=== PATIENT | female | born 1990 | race Caucasian/White ===

== ENCOUNTER → 2021-11-06 14:05 | Outpatient (BNVA) | payer OTHER, SELFPAY | PROVIDERS: PCP Internal Medicine; Visit Provider Physician Assistant Medical | DX: S16.1XXA Strain of muscle, fascia and tendon at neck level, initial encounter (principal); S39.012A Strain of muscle, fascia and tendon of lower back, initial encounter; Y04.8XXA Assault by other bodily force, initial encounter | CPT/HCPCS: 71111; 99203 ==

== ENCOUNTER → 2021-11-10 12:35 | Outpatient (BNVA) | payer OTHER, SELFPAY | PROVIDERS: PCP Internal Medicine; Visit Provider Physician Assistant | DX: S16.1XXA Strain of muscle, fascia and tendon at neck level, initial encounter (principal); S39.012A Strain of muscle, fascia and tendon of lower back, initial encounter; S09.90XA Unspecified injury of head, initial encounter; S49.92XA Unspecified injury of left shoulder and upper arm, initial encounter; Y04.8XXA Assault by other bodily force, initial encounter | CPT/HCPCS: 99213 ==

== ENCOUNTER 2022-03-11 12:33 | Emergency (ER) | payer MEDICAID, SELFPAY ==
[2022-03-11 12:48] VITALS: BP 126/80; PULSE 74; RESP 16; TEMP 36.1; O2SAT 97; BMI 28.6
[2022-03-11] MEDS: Ondansetron ODT 4 MG TAB.RAPDIS TRANSLINGU (12:54)
--- NOTE | 2022-03-11 15:29 | ED.NAVMDI ---
HPI - Nausea/Vomiting/Diarrhea General Chief complaint: Nausea/Vomiting/Diarrhea <Edgar Sellers MD - Last Filed: 03/11/22 15:33> Stated complaint: hung over, sob <Edgar Sellers MD - Last Filed: 03/11/22 15:33> Time Seen by Provider: 03/11/22 15:26 <Edgar Sellers MD - Last Filed: 03/11/22 15:33> Source: patient <Edgar Sellers MD - Last Filed: 03/11/22 15:33> Mode of arrival: ambulatory <Edgar Sellers MD - Last Filed: 03/11/22 15:33> Limitations: no limitations <Edgar Sellers MD - Last Filed: 03/11/22 15:33> History of Present Illness HPI Narrative: This is 31 years old female presented to the ED with a chief complaint of nausea vomiting, she states she was drinking last night. Denies any abdominal pain fever. <Edgar Sellers MD - Last Filed: 03/11/22 15:33> MD elicited complaint: nausea and vomiting <Edgar Sellers MD - Last Filed: 03/11/22 15:33> Onset (ago): hour(s) (10) <Edgar Sellers MD - Last Filed: 03/11/22 15:33> Description of vomiting: watery <Edgar Sellers MD - Last Filed: 03/11/22 15:33> Description of diarrhea: watery <Edgar Sellers MD - Last Filed: 03/11/22 15:33> Associated abdominal pain: No <Edgar Sellers MD - Last Filed: 03/11/22 15:33> Severity: moderate <Edgar Sellers MD - Last Filed: 03/11/22 15:33> Quality: cramping <Edgar Sellers MD - Last Filed: 03/11/22 15:33> Exacerbating factors: alcohol intake <Edgar Sellers MD - Last Filed: 03/11/22 15:33> Relieving factors: none <Edgar Sellers MD - Last Filed: 03/11/22 15:33> Related Data Allergies/Adverse reactions: Allergies Allergy/AdvReac Type Severity Reaction Status Date / Time No Known Allergies Allergy Unverified 05/05/20 16:01 <Edgar Sellers MD - Last Filed: 03/11/22 15:33> Review of Systems Review of Systems: Yes all other systems are reviewed and are negative <Edgar Sellers MD - Last Filed: 03/11/22 15:33> ENT: Reports system reviewed and no additional complaints, except as documented <Edgar Sellers MD - Last Filed: 03/11/22 15:33> Respiratory: Respiratory: Reports no additional respiratory complaints <Edgar Sellers MD - Last Filed: 03/11/22 15:33> Gastrointestinal: Gastrointestinal: Reports no additional gastrointestinal complaints <Edgar Sellers MD - Last Filed: 03/11/22 15:33> Musculoskeletal: Musculoskeletal: Reports no additional musculoskeletal complaints <Edgar Sellers MD - Last Filed: 03/11/22 15:33> [facility] Social History Social History: Social History Advance Directives: No Advance Directives Information Provided: No <Edgar Sellers MD - Last Filed: 03/11/22 15:33> Physical Exam Vital Signs: Vital Signs: Last Vital Signs Temp 96.9 F 03/11/22 12:48 Pulse 64 03/11/22 16:29 Resp 16 03/11/22 12:48 BP 119/77 03/11/22 16:29 Pulse Ox 98 03/11/22 16:29 O2 Del Method 03/11/22 16:29 BMI result Body Mass Index 28.6 <Edgar Sellers MD - Last Filed: 03/11/22 15:33> Vital Signs: Last Vital Signs Temp 96.9 F 03/11/22 12:48 Pulse 64 03/11/22 16:29 Resp 16 03/11/22 12:48 BP 119/77 03/11/22 16:29 Pulse Ox 98 03/11/22 16:29 O2 Del Method 03/11/22 16:29 BMI result Body Mass Index 28.6 <Philipp May MD - Last Filed: 03/11/22 18:09> Const: General: cooperative, comfortable and no acute distress <Edgar Sellers MD - Last Filed: 03/11/22 15:33> Nutritional Appearance: average body habitus <MD Jayson Pulido Last Filed: 03/11/22 15:33> Orientation/consciousness: patient oriented x3 <Edgar Sellers MD - Last Filed: 03/11/22 15:33> Limitations: no limitations <Edgar Sellers MD - Last Filed: 03/11/22 15:33> HEENT: Head: Yes normal to inspection <Edgar Sellers MD - Last Filed: 03/11/22 15:33> General nose exam: Normal external nose present <MD Jayson Pulido Last Filed: 03/11/22 15:33> Face and sinus: Yes normal facial exam <Edgar Sellers MD - Last Filed: 03/11/22 15:33> Mouth: Normal oral and palatal mucosa present <MD Jayson Pulido Last Filed: 03/11/22 15:33> Throat: Yes posterior oropharynx normal <Edgar Sellers MD - Last Filed: 03/11/22 15:33> Neck: Neck: Yes normal visual inspection and Yes full ROM <MD Jayson Pulido Last Filed: 03/11/22 15:33> Chest: Chest palpation & inspection: normal inspection of the chest <MD Jayson Pulido Last Filed: 03/11/22 15:33> Resp: Effort & Inspection: normal respiratory effort and able to speak in complete sentences <MD Jayson Pulido Last Filed: 03/11/22 15:33> Auscultation: clear to auscultation bilaterally <MD Jayson Pulido Last Filed: 03/11/22 15:33> Cardio: Jugular venous distension: no JVD <MD Jayson Pulido Last Filed: 03/11/22 15:33> Rate: regular rate <MD Jayson Pulido Last Filed: 03/11/22 15:33> Rhythm: regular rhythm <MD Jayson Pulido Last Filed: 03/11/22 15:33> GI: Inspection: Yes normal to inspection <MD Jayson Pulido Last Filed: 03/11/22 15:33> Palpation (GI): Soft to palpation, not firm, nontender and no guarding <Edgar Sellers MD - Last Filed: 03/11/22 15:33> Auscultation: normal bowel sounds <Edgar Sellers MD - Last Filed: 03/11/22 15:33> : General: Yes no CVA tenderness <Edgar Sellers MD - Last Filed: 03/11/22 15:33> Back/Spine/Pelvis: Back: no CVA tenderness <Edgar Sellers MD - Last Filed: 03/11/22 15:33> Skin: General skin exam: no rashes or lesions noted, elasticity normal and turgor normal <Edgar Sellers MD - Last Filed: 03/11/22 15:33> Lesions: no lesions <Edgar Sellers MD - Last Filed: 03/11/22 15:33> Neuro: General: patient oriented x3 <Edgar Sellers MD - Last Filed: 03/11/22 15:33> Cranial nerves: Yes CN's II-XII intact bilaterally <Edgar Sellers MD - Last Filed: 03/11/22 15:33> Course Course Course Narrative: 31-year-old female came in for evaluation of nausea, vomiting for 1 day after drinking alcohol, patient is awake, able to tolerate clear food in the emergency department patient is drinking fluids with no nausea or vomiting, patient has no abdominal pain, repeat abdominal exam shows no tenderness, no guarding, no rebound tenderness. Labs unremarkable except for slight leukocytosis which could be reaction only after drinking alcohol. <Philipp May MD - Last Filed: 03/11/22 18:09> MDM - Nausea/Vomiting/Diarrhea Lab Data Attestation: I reviewed the patient's lab results. <Philipp May MD - Last Filed: 03/11/22 18:09> Result diagrams: : 03/11/22 16:35 03/11/22 16:35 <Edgar Sellers MD - Last Filed: 03/11/22 15:33> Labs: Lab Results 03/11/22 03/11/22 03/11/22 Range/Units 16:35 16:35 16:35 WBC 12.1 H (4.8-10.8) X10*3/uL RBC 4.50 (4.20-5.50) X10*6/uL Hgb 13.3 (12.0-16.0) g/dl Hct 40.0 (37.0-47.0) % MCV 88.9 (80.0-98.0) fL MCH 29.6 (27.0-33.0) pg MCHC 33.3 (31.0-35.0) g/dl RDW 12.2 (11.0-16.0) % Plt Count 366 (160-400) X10*3/uL MPV 10.3 (9.4-12.3) fL Immature Gran % (Auto) 0.3 (0.0-0.4) % Neut % (Auto) 74.1 H (45-73) % Lymph % (Auto) 19.6 L (20-40) % [place] % (Auto) 5.7 (2-11) % Eos % (Auto) 0.1 (0-4) % Baso % (Auto) 0.2 (0-2) % Lymph # (Auto) 2.4 (1.2-4.9) X10*3/uL [place] # (Auto) 0.7 (0.1-1.2) X10*3/uL Eos # (Auto) 0.0 (0.0-0.4) X10*3/uL Baso # (Auto) 0.0 (0.0-0.2) X10*3/uL Abs Immat Gran (auto) 0.04 H (0.00-0.03) X10*3/uL Absolute Neuts (auto) 8.9 H (2.0-8.3) x10*3/uL Absolute Nucleated RBC 0.000 (0.0-0.012) X10*3/uL Nucleated RBC % (auto) 0.0 (0.0-0.2) /100WBC Sodium 140 (135-145) mmol/L Potassium 3.9 (3.3-5.1) mmol/L Chloride 108 (96-108) mmol/L Carbon Dioxide 22 (22-29) mmol/L Anion Gap 14 (12-20) BUN 10 (9-16) mg/dL Creatinine 0.77 (0.5-1.4) mg/dL Estim Creat Clear Calc 109.2 Estimated GFR > 60 Random Glucose 85 (60-115) mg/dL Calcium 9.0 (8.4-10.2) mg/dL Total Bilirubin 0.6 (0.0-1.0) mg/dL AST 41 H (5-31) U/L ALT 31 (0-31) U/L Alkaline Phosphatase 67 (39-117) U/L Total Protein 7.8 (6.5-8.0) g/dL Albumin 4.3 (3.5-5.0) g/dL Beta HCG, Quant < 2 mIU/mL <Edgar Sellers MD - Last Filed: 03/11/22 15:33> Lab Results 03/11/22 03/11/22 03/11/22 Range/Units 16:35 16:35 16:35 WBC 12.1 H (4.8-10.8) X10*3/uL RBC 4.50 (4.20-5.50) X10*6/uL Hgb 13.3 (12.0-16.0) g/dl Hct 40.0 (37.0-47.0) % MCV 88.9 (80.0-98.0) fL MCH 29.6 (27.0-33.0) pg MCHC 33.3 (31.0-35.0) g/dl RDW 12.2 (11.0-16.0) % Plt Count 366 (160-400) X10*3/uL MPV 10.3 (9.4-12.3) fL Immature Gran % (Auto) 0.3 (0.0-0.4) % Neut % (Auto) 74.1 H (45-73) % Lymph % (Auto) 19.6 L (20-40) % [place] % (Auto) 5.7 (2-11) % Eos % (Auto) 0.1 (0-4) % Baso % (Auto) 0.2 (0-2) % Lymph # (Auto) 2.4 (1.2-4.9) X10*3/uL [place] # (Auto) 0.7 (0.1-1.2) X10*3/uL Eos # (Auto) 0.0 (0.0-0.4) X10*3/uL Baso # (Auto) 0.0 (0.0-0.2) X10*3/uL Abs Immat Gran (auto) 0.04 H (0.00-0.03) X10*3/uL Absolute Neuts (auto) 8.9 H (2.0-8.3) x10*3/uL Absolute Nucleated RBC 0.000 (0.0-0.012) X10*3/uL Nucleated RBC % (auto) 0.0 (0.0-0.2) /100WBC Sodium 140 (135-145) mmol/L Potassium 3.9 (3.3-5.1) mmol/L Chloride 108 (96-108) mmol/L Carbon Dioxide 22 (22-29) mmol/L Anion Gap 14 (12-20) BUN 10 (9-16) mg/dL Creatinine 0.77 (0.5-1.4) mg/dL Estim Creat Clear Calc 109.2 Estimated GFR > 60 Random Glucose 85 (60-115) mg/dL Calcium 9.0 (8.4-10.2) mg/dL Total Bilirubin 0.6 (0.0-1.0) mg/dL AST 41 H (5-31) U/L ALT 31 (0-31) U/L Alkaline Phosphatase 67 (39-117) U/L Total Protein 7.8 (6.5-8.0) g/dL Albumin 4.3 (3.5-5.0) g/dL Beta HCG, Quant < 2 mIU/mL <Philipp May MD - Last Filed: 03/11/22 18:09> Discharge Plan Discharge Clinical Impression: Acute alcoholic gastritis <Edgar Sellers MD - Last Filed: 03/11/22 15:33> Patient Disposition: Home, Self-Care <Edgar Sellers MD - Last Filed: 03/11/22 15:33> Instructions: Gastritis (ED) <Edgar Sellers MD - Last Filed: 03/11/22 15:33> Additional Instructions: clear liquid diet for 24 h <Edgar Sellers MD - Last Filed: 03/11/22 15:33>
[2022-03-11 16:29] VITALS: BP 119/77; PULSE 64; O2SAT 98
[2022-03-11 16:41] LABS: MANUAL DIFF FLAG NO
[2022-03-11 16:49] LABS: Basophils Percent Auto 0.2 % (0-2); Eosinophils Percent Auto 0.1 % (0-4); Hemoglobin 13.3 g/dl (12.0-16.0); Imm Gran Abs Auto 0.04 X10*3/uL (0.00-0.03); Imm Gran Pct Auto 0.3 % (0.0-0.4); Lymphocytes Absolute Auto 2.4 X10*3/uL (1.2-4.9); Lymphocytes Percent Auto 19.6 % (20-40); Mean Corpuscular HGB Conc 33.3 g/dl (31.0-35.0); Mean Corpuscular Hemoglobin 29.6 pg (27.0-33.0); Mean Corpuscular Volume 88.9 fL (80.0-98.0); Mean Platelet Volume 10.3 fL (9.4-12.3); Monocytes Absolute Auto 0.7 X10*3/uL (0.1-1.2); Monocytes Percent Auto 5.7 % (2-11); Neutrophils Absolute Auto 8.9 x10*3/uL (2.0-8.3); Neutrophils Percent Auto 74.1 % (45-73); Platelet Count 366 X10*3/uL (160-400); Red Cell Distribution Width 12.2 % (11.0-16.0); White Blood Count 12.1 X10*3/uL (4.8-10.8)
[2022-03-11] MEDS: 0.9 % Sodium Chloride 1,000 ML 999 ML IVCONT (16:52)
[2022-03-11] MEDS: ondansetron HCL 4 MG/2 ML VIAL IVPUSH (16:52)
[2022-03-11 17:06] LABS: HCG Quantitative < 2 mIU/mL
[2022-03-11 17:13] LABS: Alanine Aminotransferase 31 U/L (0-31); Albumin Level 4.3 g/dL (3.5-5.0); Alkaline Phosphatase 67 U/L (39-117); Anion Gap 14 (12-20); Aspartate Amino Transferase 41 U/L (5-31); Bilirubin Total 0.6 mg/dL (0.0-1.0); Blood Urea Nitrogen 10 mg/dL (9-16); Carbon Dioxide 22 mmol/L (22-29); Chloride 108 mmol/L (96-108); Creatinine Clr Calc Pharmacy 109.2; Estimated Glomerular Filt Rate > 60; Glucose Random 85 mg/dL (60-115); Potassium 3.9 mmol/L (3.3-5.1); Sodium 140 mmol/L (135-145); Total Protein 7.8 g/dL (6.5-8.0)
== END 2022-03-11 18:25 | disposition home or self-care (01) ==
PROVIDERS: Emergency Provider Emergency Medicine; PCP Internal Medicine
DX: K29.00 Acute gastritis without bleeding (principal); R11.2 Nausea with vomiting, unspecified; R06.02 Shortness of breath; Z79.899 Other long term (current) drug therapy
CPT/HCPCS: 36415; 80053; 84702; 85025; 96374; 99284; J2405

== ENCOUNTER 2022-04-13 11:08 | Emergency (ER) | payer MEDICAID, SELFPAY ==
[2022-04-13 12:51] VITALS: BP 126/82; PULSE 77; RESP 16; TEMP 35.6; O2SAT 97; BMI 29.4
[2022-04-13] MEDS: Ondansetron ODT 4 MG TAB.RAPDIS TRANSLINGU (12:57)
--- NOTE | 2022-04-13 13:51 | ED.NAVMDI ---
HPI - Nausea/Vomiting/Diarrhea General Chief complaint: Nausea/Vomiting/Diarrhea Stated complaint: vomitng/abd pain Time Seen by Provider: 04/13/22 13:42 Source: patient Mode of arrival: ambulatory Limitations: no limitations History of Present Illness HPI Narrative: 31 yo female presenting with nausea and vomiting and epigastric burning after drinking alcohol last night. She reports drinking 2 cups Latisha and pineapple juice. She reports she usually does not drink alcohol and the last time she drank alcohol prior to this she also ended up in the hospital with diffuse vomiting. She states then she woke up at 07:00 she has been vomiting any time she tries to drink or eat anything. She has a burning epigastric abdominal pain. She has had similar episodes in the past. No history of pancreatitis. She only drinks alcohol very intermittently. No other drug use. She denies chance of , LMP 2 weeks ago. MD elicited complaint: nausea and vomiting Pertinent past history: alcohol abuse Onset (ago): hour(s) (7) Description of vomiting: food contents and watery Associated nausea: Yes Associated abdominal pain: Yes Location of pain: epigastric Pain consistency: intermittent Severity: moderate Quality: aching and other (Burning) Exacerbating factors: eating Relieving factors: none Context: alcohol abuse Associated symptoms: denies other symptoms Related Data Previous Rx's Medication Instructions Recorded ondansetron 4 mg disintegrating 4 mg PO Q8H PRN nausea and 04/13/22 tablet vomiting #5 tabs Allergies Allergy/AdvReac Type Severity Reaction Status Date / Time No Known Allergies Allergy Unverified 05/05/20 16:01 Review of Systems Review of Systems: Constitutional: No Fever, No Chills ENT/Mouth: No sore throat, No Rhinorrhea, No Swallowing Difficulty Cardiovascular: No Chest Pain, No SOB Gastrointestinal: + Nausea, + Vomiting, No Diarrhea, + abdominal Pain, No Hematochezia, No Melena, no hematemesis Genitourinary: No Dysuria, No Urinary Frequency, No Hematuria Musculoskeletal: No joint pain, No Myalgias Skin: No Skin Lesions, No rash Neuro: No Weakness, No Numbness, No Dizziness, +Headache Psych: No Anxiety/Panic, No Depression Heme/Lymph: No Bruising, No Lymphadenopathy Gastrointestinal: Gastrointestinal: Reports nausea PMFSH Social History Social History Advance Directives: No Advance Directives Information Provided: No Physical Exam Vital Signs: Vital Signs: Last Vital Signs Temp 96.0 F L 04/13/22 12:51 Pulse 77 04/13/22 12:51 Resp 16 04/13/22 12:51 BP 126/82 04/13/22 12:51 Pulse Ox 97 04/13/22 12:51 O2 Del Method 04/13/22 12:51 BMI result Body Mass Index 29.4 Appearance: Alert. Oriented X3. No acute distress. Eyes: Pupils equal, round and reactive to light. ENT: Pharynx normal. Moist mucous membranes Neck: Normal inspection. Neck supple. CVS: Normal heart rate and rhythm. Pulses normal. Respiratory: No respiratory distress. Breath sounds normal. Abdomen: Soft, minimal epigastric tenderness, no rebound or guarding, no RUQ tenderness, normal +BS x4 Skin: Skin warm and dry. Normal skin color. Normal skin turgor. No rashes. Extremities: No lower extremity edema. Neuro: Oriented X 3. Grossly normal, nonfocal Course Course Course Narrative: 31-year-old social drinker presents to the ER for evaluation of vomiting after she drink anesthesia last night. Similar reaction few weeks ago when she drink anesthesia as well. She was given Zofran in triage and feels much better. Will defer GI cocktail and p.o. trial. Doubt acute pancreatitis. Reevaluation(s) Reevaluation #1: Patient tolerating p.o. well. She feels much better. She is stable for discharge home with p.r.n. Zofran. Stable for DC. Discharge Plan Discharge Clinical Impression: Gastritis Patient Disposition: Home, Self-Care Instructions: Gastritis (ED) Additional Instructions: Do not drink Latisha anymore. Take a break from alcohol to allow your stomach to recover. Slowly increase your fluid intake today. Stick to a bland diet today. Take the prescribed nausea medication as needed. If you develop new or worsening symptoms call 911 or come back to the ER for further evaluation. Prescriptions: New ondansetron 4 mg tablet,disintegrating 4 mg PO Q8H PRN (Reason: nausea and vomiting) Qty: 5 0RF
[2022-04-13] MEDS: Lidocaine HCl Viscous 2 % 15 ML SOLUTION MUCOUS MEM (14:36)
[2022-04-13] MEDS: PHENobarb/Hyoscy/Atropine/Scop 10 ML ELIXIR PO (14:36)
[2022-04-13] MEDS: Magnesium Hydrox/Alum Hydrox 30 ML ORAL.SUSP PO (14:36)
== END 2022-04-13 14:54 | disposition home or self-care (01) ==
PROVIDERS: Emergency Provider Emergency Medicine
DX: K29.70 Gastritis, unspecified, without bleeding (principal); R11.2 Nausea with vomiting, unspecified; R10.13 Epigastric pain
CPT/HCPCS: 99283

== ENCOUNTER 2023-10-21 17:48 | Outpatient (REF) | payer MEDICAID, SELFPAY | END 2023-10-21 17:49 | disposition home or self-care (01) | LOC: HO.HHCLNP 17:48 | PROVIDERS: Visit Provider Internal Medicine | DX: N89.8 Other specified noninflammatory disorders of vagina (principal) | CPT/HCPCS: 36415; 81513 ==

== ENCOUNTER 2024-02-17 10:54 | Outpatient (REF) | payer MEDICAID, SELFPAY ==
[2024-02-19 19:24] LABS: TS Negative Control Passed; TS Panel A 0; TS Panel B 0; TS Positive Control Passed; TSpotTB Negative (Negative)
== END 2024-02-17 10:55 | disposition home or self-care (01) ==
LOC: HO.HHCL 10:54
PROVIDERS: Visit Provider Internal Medicine
DX: Z11.1 Encounter for screening for respiratory tuberculosis (principal)
CPT/HCPCS: 36415; 86481

== ENCOUNTER 2024-07-31 13:47 | Outpatient (REF) | payer MEDICAID, SELFPAY ==
[2024-07-31 16:05] LABS: MANUAL DIFF FLAG NO
[2024-07-31 16:12] LABS: Basophils Percent Auto 0.4 % (0-2); Eosinophils Absolute Auto 0.1 X10*3/uL (0.0-0.4); Eosinophils Percent Auto 0.8 % (0-4); Hematocrit 36.5 % (37.0-47.0); Hemoglobin 12.6 g/dl (12.0-16.0); Imm Gran Abs Auto 0.02 X10*3/uL (0.00-0.03); Imm Gran Pct Auto 0.3 % (0.0-0.4); Lymphocytes Absolute Auto 2.5 X10*3/uL (1.2-4.9); Lymphocytes Percent Auto 32.6 % (20-40); Mean Corpuscular HGB Conc 34.5 g/dl (31.0-35.0); Mean Corpuscular Hemoglobin 30.4 pg (27.0-33.0); Mean Corpuscular Volume 88.2 fL (80.0-98.0); Mean Platelet Volume 11.4 fL (9.4-12.3); Monocytes Absolute Auto 0.6 X10*3/uL (0.1-1.2); Monocytes Percent Auto 7.3 % (2-11); Neutrophils Absolute Auto 4.6 x10*3/uL (2.0-8.3); Neutrophils Percent Auto 58.6 % (45-73); Platelet Count 248 X10*3/uL (160-400); Red Blood Count 4.14 X10*6/uL (4.20-5.50); White Blood Count 7.8 X10*3/uL (4.8-10.8)
[2024-07-31 16:23] LABS: Estimated Average Glucose 100 mg/dL; Hemoglobin A1C 104.5797 umol/L; Hemoglobin A1c % 5.1 % (<6.0)
[2024-07-31 16:36] LABS: Alanine Aminotransferase 32 U/L (0-31); Albumin Level 4.5 g/dL (3.5-5.0); Alkaline Phosphatase 60 U/L (39-117); Anion Gap 10 (12-20); Aspartate Amino Transferase 34 U/L (5-31); Bilirubin Total 0.3 mg/dL (0.0-1.0); Blood Urea Nitrogen 12 mg/dL (9-16); Calcium 9.4 mg/dL (8.4-10.2); Carbon Dioxide 26 mmol/L (22-29); Chloride 108 mmol/L (96-108); Cholesterol 190 mg/dL (<200); Estimated Glomerular Filt Rate > 60; Glucose Random 82 mg/dL (60-115); HDL Cholesterol 39 mg/dL (>40); LDL Cholesterol Calculated 134 mg/dL (<100); Potassium 3.5 mmol/L (3.3-5.1); Sodium 140 mmol/L (135-145); Total Protein 8.3 g/dL (6.5-8.0); Triglycerides 88 mg/dL (<150)
[2024-07-31 16:45] LABS: TSH reflex Free T4 3.07 uIU/mL (0.32-4.0)
[2024-07-31 17:04] LABS: Amphetamine Screen Urine Not Detected (Not Detect); Barbiturates, Urine Not Detected (Not Detect); Benzodiazepines Screen Urine Not Detected (Not Detect); Buprenorphine Scr Not Detected (Not Detect); Cannabinoid Screen Urine Not Detected (Not Detect); Cocaine Screen Urine Not Detected (Not Detect); Fentanyl, urine Not Detected (Not Detect); Methadone Screen, Urine Not Detected (Not Detect); Opiate Screen Urine Not Detected (Not Detect); Oxycodone Screen Urine Not Detected (Not Detect); Phencyclidine Screen Urine Not Detected (Not Detect)
[2024-08-01 08:59] LABS: HIV AB/AG Nonreactive (Nonreactive); HIV Num 1 0.07 S/CO (0.00-0.99); ~HepC Num1 0.28 S/CO (0.00-0.79); ~Hepatitis C Antibody Nonreactive (Nonreactive)
[2024-08-03 11:28] LABS: TS Negative Control Passed; TS Panel A 0; TS Panel B 0; TS Positive Control Passed; TSpotTB Negative (Negative)
== END 2024-07-31 13:48 | disposition home or self-care (01) ==
LOC: HO.HHCL 13:47
PROVIDERS: Registered Nurse; Visit Provider Internal Medicine
DX: Z00.00 Encounter for general adult medical examination without abnormal findings (principal); F41.9 Anxiety disorder, unspecified
CPT/HCPCS: 36415; 80053; 80061; 80307; 82306; 83036; 84443; 85025; 86481; 86803; 87389

== ENCOUNTER 2024-10-06 14:55 | Outpatient (REF) | payer MEDICAID, SELFPAY ==
--- OUTSIDE RECORDS SUMMARY | 2024-10-06 15:55 | XMS_ITS | Encounter Summary ---
Author Organization [facility] Address [address] [place] [address] Care Team Providers Care [employer] Name Role Phone Radha Hoyos MD Primary Care Provide r Reason for Visit * Reason Comments Med Change Request Encounter Details Date Type Department Care Team (Late st Contact Info) Description 05/13/2023 Refill [facility] [address] [place], [place] [phone] Yuki Pyle MD [address] [place], [place] [phone] Chronic migraine without aura without status migrainosus, not intractable Social History Tobacco Use Types Packs/Day Years Used Date Smoking Tobacco: Never Smokeless Tobacco: Never Comments Unknown Sex and Gender Information Value Date Recorded Sex Assigned at Female 06/18/2022 10:22 AM EDT Legal Sex Female 10:22 AM EDT Gender Identity Female 06/18/2022 10:22 AM EDT Sexual Orientation Bisexual 06/18/2022 10 :22 AM EDT documented as of this encounter Plan of Treatment Not on file documented as of this encounter Visit Diagnoses Diagnosis Chronic migraine without aura without status migrainosus, not intractable documented in this encounter Care Teams [employer] Relationship Specialty Start Date End Date Radha Hoyos MD [address] [place], [place] [id number] PCP - General Family Medicine 08/26/18 documented as of this encounter
--- OUTSIDE RECORDS SUMMARY | 2024-10-06 15:55 | XMS_ITS | Clinical Summary ---
Author Organization [employer] Address [address] [place] [address] [address] [place] [address] Care Team Providers Care Fashion Designer Name Role Phone Radha Hoyos MD Primary Care Provide r Allergies No known active allergies Medications * This document contains information received from the source organization and may not represent a complete record from that organization. metroNIDAZOLE (Metrogel) 0.75 % vaginal gelIndications: Vaginal discharge INSERT 1 APPLICATORFUL INTRAVAGINALLY 2 (TWO) TIMES A WEEK. START THE DAY AFTER FINISHING METRONIDAZOLE TABLETS. 140 g 5 09/26/19 24 Active fluconazole (Diflucan) 150 MG tabletIndicatio ns:Vaginal discharge Take one tablet today then after 72 hrs take another tablet 2 tablet 10/21/19 24 Active sertraline (Zoloft) 25 MG tabletIndicatio ns:Anxiety Take 1 tablet (25 mg) by mouth in the morning. 30 tablet 1 08/04/20 24 Active hydrOXYzine pamoate (Vistaril) 25 MG capsuleIndicati ons:Anxiety Take 1 capsule (25 mg) by mouth if needed in the morning and at bedtime for anxiety. 30 capsule 1 08/04/20 24 Active amitriptyline (Elavil) 10 MG tabletIndicatio ns:Chronic migraine without aura without status migrainosus, not intractable TAKE 1 TABLET BY MOUTH EVERYDAY AT BEDTIME 30 tablet 08/06/20 24 Active polyethylene glycol, PEG, 3350 (MiraLax) 17 GM/SCOOP powder Take 1 scoop (17 gm) daily as needed for constipation. Hold for watery stool 527 g 10/06/19 25 Active docusate sodium (Colace) 50 MG capsule Take one capsule daily as needed for constipation 30 capsule 10/06/19 25 Active Active Problems Problem Noted Date Diagnosed Date History of panic attacks 07/24/2024 Family history of breast cancer in mother 2023 Encounter for preventive care 07/09/2024 Assessment & Plan (07/09/2024 4:22 PM EST): See HPI Neck pain 07/09/2024 Anxiety 07/09/2024 Vitamin D deficiency 03/17/2024 Acute urinary tract infection 03/17/2024 Vaginal discharge 10/21/2023 Assessment & Plan (10/21/2023 10:44 AM EST): I will treat her empirically with diflucan, BV panel ordered, she will be contacted with results Chronic migraine with aura w ithout status migrainosus, not intractable 05/11/2023 Assessment & Plan (07/09/2024 4:22 PM EST): I advise to avoid migraine triggers like red wine, chocolate, cheese, strong perfumes RTC 4 weeks televisit Assessment & Plan (05/11/2023 11:56 AM EDT): Take Ibuprofen 400mg + Tyelenol 500mg together at onset of ROWE. Can take Imitrex 50-100mg q4h prn if ROWE is not resolved 4h after above, max 200mg Imitrex/d. Keep sxs dairy with potential trigger list FU w PCP in 2-3m Encounters * This document contains information received from the source organization and may not represent a complete record from that organization. Date Type Department Care Team Description 10/06/2024 2:20 PM EST Office Visit [facility] [address] [place] [address] Vaginal discharge 08/28/2024 Telephone [facility] [address] [place] [phone] Radha Hoyos MD No Show 08/06/2024 Refill [facility] [address] [place] [phone] Radha Hoyos MD Chronic migraine without aura without status migrainosus, not intractable 07/24/2024 Telephone [facility] [address] [facility] [place] [address] Tia Clifford, HSAWN Address correction 07/10/2024 Telephone [facility] [address] [facility] [place] [phone] Radha Hoyos MD 07/09/2024 2:45 PM EST Office Visit [facility] [address] [facility] [place] [phone] Radha Hoyos MD Chronic migraine without aura without status migrainosus, not intractable (Primary Dx); Family history of breast cancer in mother; Encounter for preventive care; Neck pain; Lateral epicondylitis of left elbow; Generalized social phobia; Chronic migraine with aura without status migrainosus, not intractable 07/09/2024 Travel from Last 3 Months Immunizations Name Administration Dates Next Due Influenza injectable quadrivalent preservative f ree 07/01/2022,08/01/2020 Tdap 05/25/2019,07/28/2012 Varicella 04/06/2015 Social History Tobacco Use Types Packs/Day Years Used Date Smoking Tobacco: Never Passive Smoke Exposure: Never Smokeless Tobacco: Never Tobacco Cessation:Counseling Given: Not Answered Alcohol Use Standard Drinks/Week Comments Never 0 (1 standard drink = 0.6 oz pur e alcohol) Depression Answer Date Recorded Patient Health Questionnaire-9 Score 0 10/21/2023 Patient Health Questionnaire-9 Score 0 10/21/2023 Last PHQ-9: Questionnaire Data Not on file 0 10/21/2023 Housing Stability Answer Date Recorded What is your housing situation today? I have marvin santos 03/19/[address] you li ve. Do you have problems with any of the following? None of the above 03/19/2024 Food Insecurity Answer Date Recorded Within the past 12 months, y ou worried that your food would run out before you got money to buy more: Never True 03/19/2024 Within the past 12 months,th e food you bought just didn't last and you didn't have enough money to get more: Never True 08/2023 Transportation Answer Date Recorded In the past 12 months, has l ack of transportation kept you from medical appts, meetings, work or from getting things needed for daily living? No 03/19/2024 Utilities Answer Date Recorded In the past 12 months, has t he electric, gas, oil or water company threatened to shut off services in your home? No 03/19/2024 Depression Answer Date Recorded Patient Health Questionnaire-2 Score 0 10/21/2023 Internet Access Answer Date Recorded Internet Access Q1 No 07/09/2024 Internet Access Q2 I do not want or need it 06/20 Comments No Sex and Gender Information Value Date Recorded Sex Assigned at Female 06/18/2022 10:22 AM EDT Legal Sex Female 10:22 AM EDT Gender Identity Female 06/18/2022 10:22 AM EDT Sexual Orientation Bisexual 06/18/2022 10 :22 AM EDT Last Filed Vital Signs Vital Sign Reading Time Taken Comments Blood Pressure 110/76 10/06/2024 2:06 PM EST Pulse 82 10/06/2024 2:06 PM EST Temperature 36.7 ??C (98 ??F) 10/06/2024 2:06 PM EST Respiratory Rate 16 10/06/2024 2:06 PM EST Oxygen Saturation 99% 10/06/2024 2:06 PM EST Inhaled Oxygen Concentration - - Weight 73.9 kg (163 lb) 10/06/2024 2:06 PM EST Height 165.1 cm (5' 5 ) 07/09/2024 2:41 PM EST Body Mass Index 27.12 07/09/2024 2:41 PM EST Plan of Treatment Health Maintenance Due Date Last Done Comments Family Planning (PISQ) 2005 Hepatitis B Vaccines (1 of 3 - 19+ 3-dose series) 2009 Pap Smear 2011 Cervical Cancer Screening 2020 HPV/Cotest 2020 COVID-19 Vaccine (2 - 2023-2 5 season) 2024 09/18/2022 Influenza Vaccine (#1) 2024 , 08/01/2020 Depression Screening 10/20/2024 10/21/2023, 10/21/2023 Alcohol/Substance Use Screening 07/09/2025 07/09/2024 SDOH Screening 07/09/2025 07/09/2024 Tobacco Screening 07/09/2025 07/09/2024 DTaP/Tdap/Td Vaccines (3 - T d or Tdap) 05/25/2029 05/25/2019, 07/28/2012 Zoster Vaccines (1 of 2) 2040 RSV Patients and Patients Aged 60 years or older (1 - 1-dose 75+ series) 2065 HIV Screening Completed 07/31/2024, 08/24/2022, 09/09/2020 Hepatitis C Screening Completed 07/31/2024 , 08/24/2022, 09/09/2020 HIB Vaccines Aged Out No longer eligi ble based on patient's age to complete this topic HPV Vaccines Aged Out No longer eligi ble based on patient's age to complete this topic Hepatitis A Vaccines Aged Out No long er eligible based on patient's age to complete this topic IPV Vaccines Aged Out No longer eligi ble based on patient's age to complete this topic Meningococcal Vaccine Aged Out No ashley ina eligible based on patient's age to complete this topic Pneumococcal Vaccine: Pediatrics (0 to 5 Years) and At-Risk Patients (6 to 49) Years) Aged Out No longer eligible b ased on patient's age to complete this topic RSV under 20 months Aged Out No longe r eligible based on patient's age to complete this topic Rotavirus Vaccines Aged Out No longer eligible based on patient's age to complete this topic Procedures Procedure Name Priority Date/Time Associated Diagnosis Comments POCT URINALYSIS DIPSTICK Routine 10/06/2024 2:28 PM EST Vaginal discharge DRUG MONITOR, PANEL 1, SCREEN, URINE Routine 07/31/2024 2:03 PM EST Anxiety T-SPOT(R).TB Routine 07/31/2024 2:03 PM EST Encounter for preventive care TSH W/REFLEX TO FT4 Routine 07/31/2024 2 :03 PM EST Encounter for preventive care VITAMIN D,25-OH,TOTAL,IA Routine 07/31/2024 2:03 PM EST Encounter for preventive care LIPID PANEL, STANDARD Routine 07/31/2024 2:03 PM EST Encounter for preventive care HEPATITIS C AB W/REFL TO HCV RNA, QN, PCR Routine 07/31/2024 2:03 PM EST Encounter for preventive care HIV 1/2 ANTIGEN/ANTIBODY, FOURTH GENERATION W/RFL Routine 07/31/2024 2:03 PM EST Encounter for preventive care HEMOGLOBIN A1C Routine 07/31/2024 2:03 PM EST Encounter for preventive care COMPREHENSIVE METABOLIC PANEL Routine 07/31/2024 2:03 PM EST Encounter for preventive care CBC WITH AUTO DIFFERENTIAL Routine 07/31/2024 2:03 PM EST Encounter for preventive care from Last 3 Months Results * (ABNORMAL) POCT urinalysis dipstick manually resulted (10/06/2024 2:28 PM EST) Color, UA Susy Clarity, UA Clear Glucose, UA Negative Bilirubin, UA Negative Ketones, UA Negative Spec Grav, UA 1.030 Blood, UA Positive(A) Negative, None Detected Comment:Trace pH, UA 6.0 Protein, UA Trace Urobilinogen, UA 0.2 Leukocytes, UA Negative Negative, Rare, Trace Nitrite, UA Negative Negative, None Detected Appearance, UA OK Urine 10/06/2024 2:28 PM EST us Radha Poe MD POINT OF CARE TEST EN TER/EDIT ORDERABLES Final Result * (ABNORMAL) Vitamin D, 25-Hydroxy, Total, Immunoassay (07/31/2024 2:03 PM EST) Vitamin D 25-OH Total 14.0(L) >30 ng/mL [facility] Comment:Health Based Referen ce Values*< 20 ng/mL Axfgczfpe75-66 ng/mL Insufficient> 30 ng/mL Sufficient*Rashida BOSS. N Engl J Med. 2007;357:266-280Care must be taken in interpreting Vitamin D results fromdifferent laboratories and methodologies. Published datademonstrated that results from patients undergoinghemodialysis may show a negative bias when tested withvarious automated 25-OH vitamin D assays when compared toLC-MS/MS.When testing samples from patients whose predominant form ofVitamin D is Vitamin D2, such as patients receiving VitaminD2 supplementation, results that are subtherapeutic shouldbe confirmed with another method such as LC-MS/MS. Blood Venous blood specimen / Unknown 07/31/2024 2:03 PM EST 07/31/2024 4:01 PM EST Radha Poe MD LAB BLOOD ORDERABLES Final Result [facility] [address] [place] [phone] * T-SPOT??.TB (07/31/2024 2:03 PM EST) Pathologist [facility] T Spot TB Negative Negative [facility] Comment:A negative test resu lt does not exclude the possibilityof exposure to or infection with Mycobacteriumtuberculosis (M. tuberculosis). Patients with recentexposure to TB infected individuals exhibiting anegative T-SPOT.TB result should be considered forretesting within 6 weeks or if other relevant clinicalsymptoms indicate. Results from T-SPOT.TB testing mustbe used in conjunction with each individual'sepidemiological history, current medical status,and results of other diagnostic evaluations.The T-SPOT.TB test is qualitative and results arereported as positive, borderline, or negative, giventhat the test controls perform as expected. In linewith the Centers for Disease Control and Prevention's2010 recommendation to report quantitative measurementsalongside the qualitative result, the laboratoryprovides spot counts for informational purposes only.The T-SPOT.TB test should not be interpreted as aquantitative test. TS PANEL A 0 [facility] TS PANEL B 0 [facility] Negative Control Passed [facility] Positive Control Passed [facility] Comment:For additional infor chris, please refer [email or web address].Thumb Reading/faq/[email or web address](This link is being provided for informational/educational purposes only.)THIS TEST WAS PERFORMED AT:[facility] [place], [place] [address]MADI JOY MD,PHD 07/31/2024 2:03 PM EST 07/31/2024 4:01 PM EST Radha Poe MD LAB BLOOD ORDERABLES Final Result Performing Organization Address [facility]/ZIP Co de Phone Number [facility] [address] [place] [phone] * TSH with Reflex to Free T4 (07/31/2024 2:03 PM EST) Pathologist [facility] TSH reflex Free T4 3.07 0.32 - 4.0 uIU/mL [facility] Blood Venous blood specimen / Unknown 07/31/2024 2:03 PM EST 07/31/2024 4:01 PM EST Radha Poe MD LAB BLOOD ORDERABLES Final Result Performing Organization Address [facility] Co de Phone Number [facility] [address] [place] [phone] * Drug Monitoring, Panel 1, Screen, Urine (07/31/2024 2:03 PM EST) Pathologist [facility] Opiate Screen Urine Not Detected Not Detect [facility] Comment:Opiate cut-off is 30 0 ng/mL.Positive results are unconfirmed and should not be used fornon-medical purposes. Barbiturates, Urine Not Detected Not Detect [facility] Comment:Barbiturate cut-off is 200 ng/mL.Positive results are unconfirmed and should not be used fornon-medical purposes. Phencyclidine Screen Urine Not Detected Not Detect [facility] Comment:Phencyclidine cut-of f is 25 ng/mL.Positive results are unconfirmed and should not be used fornon-medical purposes. Amphetamine Screen Urine Not Detected Not Detect [facility] Comment:Amphetamine cut-off is 1000 ng/mL.Positive results are unconfirmed and should not be used fornon-medical purposes. Benzodiazepines Screen Urine Not Detected Not Detect [facility] Comment:Benzodiazepine cut-o ff is 200 ng/mL.Positive results are unconfirmed and should not be used fornon-medical purposes. Cocaine Screen Urine Not Detected Not Detect [facility] Comment:Cocaine cut-off is 3 00 ng/mL.Positive results are unconfirmed and should not be used fornon-medical purposes. Cannabinoid Screen Urine Not Detected Not Detect [facility] Comment:Cannabinoid cut-off is 50 ng/mL.Positive results are unconfirmed and should not be used fornon-medical purposes. Methadone Screen, Urine Not Detected Not Detect ng/mL [facility] Comment:Methadone cut-off is 300 ng/mL.Positive results are unconfirmed and should not be used fornon-medical purposes. FENTANYL URINE Not Detected Not Detect [facility] Comment:Fentanyl cut-off is 1 ng/mL.Positive results are unconfirmed and should not be used fornon-medical purposes. Oxycodone Urine Screen Not Detected Not Detect ng/mL [facility] Comment:Oxycodone cut-off is 100 ng/mL.Positive results are unconfirmed and should not be used fornon-medical purposes. Buprenorphine Screen Not Detected Not Detect ng/mL [facility] Comment:Buprenorphine cut-of f is 5 ng/mL.Positive results are unconfirmed and should not be used fornon-medical purposes. 07/31/2024 2:03 PM EST 07/31/2024 4:03 PM EST Yefri Bro PMHNP LAB URINE ORDERABLES Final Re sult [facility] [address] [place] [phone] * (ABNORMAL) CBC auto differential (07/31/2024 2:03 PM EST) White Blood Count 7.8 4.8 - 10.8 X10*3/uL [facility] Red Blood Count 4.14(L) 4.20 - 5.50 X10*6/uL [facility] Hemoglobin 12.6 12.0 - 16.0 g/dl [facility] Hematocrit 36.5(L) 37.0 - 47.0 % [facility] Mean Corpuscular Volume 88.2 80.0 - 98.0 fL [facility] Mean Corpuscular Hemoglobin 30.4 27.0 - 33.0 pg [facility] Mean Corpuscular HGB Conc 34.5 31.0 - 35.0 g/dl [facility] Red Cell Distribution Width 12.0 11.0 - 16.0 % [facility] Platelet Count 248 160 - 400 X10*3/uL [facility] Mean Platelet Volume 11.4 9.4 - 12.3 fL [facility] Neutrophils Percent Auto 58.6 45 - 73 % [facility] Imm Gran Pct Auto 0.3 0.0 - 0.4 % [facility] Lymphocytes Percent Auto 32.6 20 - 40 % [facility] Monocytes Percent Auto 7.3 2 - 11 % [facility] Eosinophils Percent Auto 0.8 0 - 4 % [facility] Basophils Percent Auto 0.4 0 - 2 % [facility] NRBC Pct Auto 0.0 0.0 - 0.2 /100WBC [facility] Neutrophils Absolute Auto 4.6 2.0 - 8.3 x10*3/uL [facility] Imm Gran Abs Auto 0.02 0.00 - 0.03 X10*3/uL [facility] Lymphocytes Absolute Auto 2.5 1.2 - 4.9 X10*3/uL [facility] Monocytes Absolute Auto 0.6 0.1 - 1.2 X10*3/uL [facility] Eosinophils Absolute Auto 0.1 0.0 - 0.4 X10*3/uL [facility] Basophils Absolute Auto 0.0 0.0 - 0.2 X10*3/uL [facility] NRBC Abs Auto 0.000 0.0 - 0.012 X10*3/uL [facility] Blood Venous blood specimen / Unknown 07/31/2024 2:03 PM EST 07/31/2024 4:01 PM EST us Radha Poe MD LAB BLOOD ORDERABLES Final Result Performing Organization Address [facility]/ZIP Co de Phone Number [facility] [address] [place] [phone] * Hepatitis C Antibody with Reflex to HCV, RNA, Quantitative, Real-Time PCR (07/31/2024 2:03 PM EST) Hepatitis C Antibody Nonreactive Nonreactive [facility] Comment:Antibodies to HCV no t detected; does not exclude early acuteHCV infection. Blood Venous blood specimen / Unknown 07/31/2024 2:03 PM EST 07/31/2024 3:56 PM EST us Radha Poe MD LAB BLOOD ORDERABLES Final Result Performing Organization Address [facility] Co de Phone Number [facility] [address] [place] [phone] * HIV-1/2 Antigen and Antibodies, Fourth Generation, with Reflexes (07/31/2024 2:03 PM EST) HIV AB/AG Nonreactive Nonreactive [facility] Comment:HIV-1 p24 Ag and/or HIV-1/HIV-2 Ab not detected.A test result that is nonreactive does not exclude thepossibility of exposure to or infection with HIV-1 and/orHIV-2. Nonreactive results in this assay for individualswith prior exposure to HIV-1 and/or HIV-2 may be due toantigen and antibody levels that are below the limit ofdetection of this assay.The [employer] HIV Ag/Ab Combo assay result andsupplemental assay results should be interpreted inconjunction with the patient's clinical presentation,history and other laboratory results. If the results areinconsistent with clinical evidence, additional testing issuggested to confirm the result. Blood Venous blood specimen / Unknown 07/31/2024 2:03 PM EST 07/31/2024 3:56 PM EST Radha Poe MD LAB BLOOD ORDERABLES Final Result Performing Organization Address [facility]/ZIP Co de Phone Number [facility] [address] [place] [phone] * Hemoglobin A1c (07/31/2024 2:03 PM EST) Hemoglobin A1c 5.1 <6.0 % [facility] Comment:Hemoglobin A1C Refer ence Range Adults: 4.8 - 6.0 % Non diabetic: < 6.0 % Goal: < 7.0 %Additional Action Suggested: > 8.0 %Note: Hemoglobin A1c results are invalid for patients with abnormal amounts of HbF. Blood transfusions may impact the HbA1c concentration in the patient sample. Estimated Average Glucose 100 mg/dL [facility] Comment:eAG = Estimated ave rage glucose which is %A1C expressed asaverage glucose, using the formula of the W3B-KbfhbhfRhhkrhz Glucose study (ADAG), Diabetes Care, Vol.31,#8,Mar. 2007 Blood Venous blood specimen / Unknown 07/31/2024 2:03 PM EST 07/31/2024 4:01 PM EST Radha Poe MD LAB BLOOD ORDERABLES Final Result Performing Organization Address [facility] Co de Phone Number [facility] [address] [place] [phone] * (ABNORMAL) Lipid Panel, Standard (07/31/2024 2:03 PM EST) Triglycerides 88 <150 mg/dL [facility] Comment:Desirable Triglyceri de: less than 150 mg/dLBorderline High Triglyceride 150-199 mg/dLHigh Triglyceride: 200-499 mg/dLVery High Triglyceride: greater than or equal to 5OO mg/dL Cholesterol 190 <200 mg/dL [facility] Comment:Desirable Cholestero l: less than 200 mg/dLBorderline High Cholesterol: 200-239 mg/dLHigh Cholesterol: greater than 239 mg/dL LDL Cholesterol Calculated 134(H) <100 mg/dL [facility] Comment:Desirable LDL: less than 100 mg/dLNear Optimal/Above Optimal LDL: 110- 129 mg/dLBorderline High LDL: 130-159 mg/dLHigh LDL: 160-189 mg/dLVery High LDL: greater than or equal to 190 mg/dL HDL Cholesterol 39(L) >40 mg/dL [facility] Comment:Desirable HDL: great er than 40 mg/dL Note: This HDL assay may give artificially low results in patients with liver disease. Blood Venous blood specimen / Unknown 07/31/2024 2:03 PM EST 07/31/2024 4:01 PM EST Radha Poe MD LAB BLOOD ORDERABLES Final Result [facility] [address] [place] [phone] * (ABNORMAL) Comprehensive Metabolic Panel (07/31/2024 2:03 PM EST) Sodium 140 135 - 145 mmol/L [facility] Potassium 3.5 3.3 - 5.1 mmol/L [facility] Chloride 108 96 - 108 mmol/L [facility] Carbon Dioxide 26 22 - 29 mmol/L [facility] Anion Gap 10(L) 12 - 20 [facility] Urea Nitrogen (BUN) 12 9 - 16 mg/dL [facility] Creatinine, Serum 0.68 0.5 - 1.4 mg/dL [facility] Estimated Glomerular Filt Rate >60 [facility] Comment:Chronic Kidney Disea se: Estimated GFR < 60 mL/min/1.06z3Ykefts Kidney Disease: Estimated GFR < 15 mL/min/1.73m2 Glucose 82 60 - 115 mg/dL [facility] Calcium 9.4 8.4 - 10.2 mg/dL [facility] Bilirubin, Total 0.3 0.0 - 1.0 mg/dL [facility] Aspartate Amino Transferase 34(H) 5 - 31 U/L [facility] Alanine Aminotransferase 32(H) 0 - 31 U/L [facility] Total Protein 8.3(H) 6.5 - 8.0 g/dL [facility] Albumin Level 4.5 3.5 - 5.0 g/dL [facility] Alkaline Phosphatase 60 39 - 117 U/L [facility] Blood Venous blood specimen / Unknown 07/31/2024 2:03 PM EST 07/31/2024 4:01 PM EST Radha Poe MD LAB BLOOD ORDERABLES Final Result Performing Organization Address City/State/[facility] Co de Phone Number [facility] [address] [place] [phone] from Last 3 Months Insurance [id number] [facility] STAND[facility] Care Teams Fashion Designer Relationship Specialty Start Date End Date Radha Hoyos MD [address] [place] [phone] PCP - General Family Medicine 08/26/18
--- OUTSIDE RECORDS SUMMARY | 2024-10-06 15:55 | XMS_ITS | Encounter Summary ---
Author Organization [employer] Address [address] [facility] 7t [place] [address] Care Team Providers Care Cable Ferryboat Operator Name Role Phone Radha Hoyos MD Primary Care Provide r Reason for Visit * Reason Comments Vaginal Discharge Encounter Details Date Type Department Care Team ([facility] st Contact Info) Description 10/06/2024 2:20 PM EST Office Visit [facility] [address] [place] [address] Vaginal discharge Social History Tobacco Use Types Packs/Day Years Used Date Smoking Tobacco: Never Passive Smoke Exposure: Never Smokeless Tobacco: Never Alcohol Use Standard Drinks/Week Comments Never 0 [...] AM EDT documented as of this encounter Last Filed Vital Signs Vital Sign Reading Time Taken Comments Blood Pressure 110/76 10/06/2024 2:06 PM EST Pulse 82 10/06/2024 2:06 PM EST Temperature 36.7 ??C (98 ??F) 10/06/2024 2:06 PM EST Respiratory Rate 16 10/06/2024 2:06 PM EST Oxygen Saturation 99% 10/06/2024 2:06 PM EST Inhaled Oxygen Concentration - - Weight 73.9 kg (163 lb) 10/06/2024 2:06 PM EST Height - - Body Mass Index 27.12 07/09/2024 2:41 PM EST documented in this encounter Plan of Treatment Scheduled Orders Name Type Priority Associated Diagnoses Orde r Schedule BV/Vaginitis DNA Probe Lab Routine Vaginal discharge Expected: 10/06/2024 (Approximate), Expires: 10/06/2025 HIV-1/2 Antigen and Antibodies, Fourth Generation, with Reflexes Lab Routine Vaginal discharge Expected: 10/06/2024 (Approximate), Expires: 10/06/2025 RPR (Monitor) with Reflex to??Titer Lab Routine Vaginal discharge Expected: 10/06/2024, Expires: 10/06/2025 Bacterial Vaginosis Microbiology Routine Vaginal discharge Ordered: 10/06/2024 Chlamydia/N. Gonorrhoeae RNA, TMA, Urogenitial Microbiology Routine Vaginal discharge Ordered: 10/06/2024 Culture, Urine, Routine Microbiology Routine Vaginal discharge Expected: 10/06/2024 (Approximate), Expires: 10/06/2025 documented as of this encounter Procedures Procedure Name Priority Date/Time Associated Diagnosis Comments POCT URINALYSIS DIPSTICK Routine 10/06/2024 2:28 PM EST Vaginal discharge documented in this encounter Results * (ABNORMAL) POCT urinalysis dipstick manually [...] UA OK Urine 10/06/2024 2:28 PM EST Radha Poe MD POINT OF CARE TEST EN TER/EDIT ORDERABLES Final Result documented in this encounter Visit Diagnoses Diagnosis Vaginal discharge Leukorrhea, not specified as infective documented in this encounter Additional Health Concerns Assessment Noted Time PHQ-9 Depression Total Score: 0 10/21/19 24 9:42 AM EST documented as of this encounter Care Teams Cable Ferryboat Operator Relationship Specialty Start Date End Date Radha Hoyos MD [address] [place] [id number] PCP - General Family Medicine 08/26/18 documented as of this encounter
--- OUTSIDE RECORDS SUMMARY | 2024-10-06 15:55 | XMS_ITS | Encounter Summary ---
Author Organization [facility] Address [address] [facility] 7t [place] [address] Care Team Providers Care Mica Parts Sprayer Name Role Phone Radha Hoyos MD Primary Care Provide r Reason for Visit * Reason Comments Med Change Request Encounter Details Date Type Department Care Team (Late st Contact Info) Description 05/13/2023 Refill [facility] [address] [place], [place] [phone] Yuki Pyle MD [address] [place], [place] [phone] Chronic migraine without aura without status migrainosus, [...] intractable documented in this encounter Care Teams M[employer] Sprayer Relationship Specialty Start Date End Date Radha Hoyos MD [address] [place], [place] [phone] PCP - General Family Medicine 08/26/18 documented as of this encounter
--- OUTSIDE RECORDS SUMMARY | 2024-10-06 15:55 | XMS_ITS | Continuity of Care Document ---
Author Organization Jatinder Khour[facility] Address [address] [place] [address] Phone Care Team Providers Care Director Social Name Role Phone Unavailable Unavailable Unavailable Medications [...] Date Provider Providers Copied on Encounter Jatinder [facility], [address], [place], [place], [id number], [place] tel:[phone] [employer] [facility] No Information 9 No Information Jatinder [facility], [address], [place], [place], [id number], [place] tel:[phone] Converted Locations No Information 1 No Information key [facility], [address], [place], [place], [id number], [place] tel:[phone] Converted Locations No Information 1 No Information key [facility], [address], [place], [id number], [place] tel:[phone] [facility] Genital herpes, unspecifiedVa ginitis and vulvovaginiti s, unspecifiedCo ntact dermatitis and other eczema, unspecified causeNEED FOR PROPHYLACTIC VACCINATION AND INOCULATION, INFLUENZARout ine general medical examination at a health care facility 1 No Information [facility], [address], [place], [place], [id number], [place] tel:[phone] [facility] Need for other specified prophylactic measureScreen ing examination for pulmonary tuberculosis 0 Gary Catalan. [address] [facility], [place], [place], [id number]. tel:[phone] [facility], [address], [place], [place], [id number], [place] tel:[phone] [facility] Unspecified contraceptive management 0200 8 No Information [facility], [address], [place], [place], [id number], [place] tel:[phone] [facility] Depressive disorder, not elsewhere classified [phone] 8 Z-Converted Provider. . [facility], [address], [place], [place], [id number], [place] tel:[phone] [facility] Dental Dysmenorrhea [phone] Z-Converted Provider. [...] Record Payers Payer name Insurance type Covered constitution party ID Authoriza tion(s) No Information Social History [...]
[2024-10-07 02:33] LABS: CT PCR NOT DETECTED (Not Detect.); NG PCR DETECTED (Not Detect.)
[2024-10-07 08:24] LABS: HIV AB/AG Nonreactive (Nonreactive); HIV Num 1 0.08 S/CO (0.00-0.99)
[2024-10-07 12:32] LABS: Bacterial Vaginosis PCR NEGATIVE (Negative); Candida Group PCR NOT DETECTED (Not Detect); Candida glab krusei PCR NOT DETECTED (Not Detect); Trichomonas vaginalis PCR NOT DETECTED (Not Detect)
[2024-10-08 09:34] LABS: RPR Rapid Plasma Reagin NON-REACTIVE (NON-REACTIVE)
== END 2024-10-06 14:56 | disposition home or self-care (01) ==
LOC: HO.HHCL 14:55
PROVIDERS: Internal Medicine; Visit Provider Nurse Practitioner Family
DX: N89.8 Other specified noninflammatory disorders of vagina (principal)
CPT/HCPCS: 36415; 81515; 86592; 87389; 87491; 87591

== ENCOUNTER 2024-11-03 16:45 | Outpatient (REF) | payer MEDICAID, SELFPAY | END 2024-11-03 16:46 | disposition home or self-care (01) | LOC: HO.HHCLNP 16:45 | PROVIDERS: Visit Provider Internal Medicine | DX: Z13.89 Encounter for screening for other disorder (principal) | CPT/HCPCS: 81513; 87481; 87491; 87591; 87661 ==

== ENCOUNTER 2025-08-04 02:36 | Emergency (ER) | payer SELFPAY ==
--- OUTSIDE RECORDS SUMMARY | 2018-08-20 09:57 | XMS_ITS | Continuity of Care Document ---
Author Organization [facility] Address [address] [place] [address] Phone Care Team Providers Care Director Pharmacovigilance Name Role Phone Unavailable Unavailable Unavailable Medications Medication Instructions Dosage Effective Dates (start - stop) Status Comments acyclovir 400 mg Tab 1 tablet BID to prevent transmission of HSV - Active hydrocortisone 2.5 % Topical Cream apply thin layer to affected are twice daily for 3 wks - Active Metrogel Vaginal 0.75 % 1 applicator PV nightly for 5 days - Active Procedures Procedure Date IMMUNIZATION ADMIN, EACH ADD FLU VACCINE, 3 YRS & >, IM Advance Directives Directive Yes / No Effective Date File Name No Information Encounters Encounter Description Practice Location Reason(s) For Visit Diagnoses Date Provider Providers Copied on Encounter [facility], [address], [place], [place], [id number], [place] tel:[phone] [employer] [facility] No Information 9 No Information [facility], [address], [place], [place], [id number], [place] tel:[phone] Converted Locations No Information 1 No Information key [facility], [address], [place], [place], [id number], [place] tel:[phone] Converted Locations No Information 1 No Information key [facility], [address], [place], [id number], [place] tel:[phone] [facility] Genital herpes, unspecifiedVa ginitis and vulvovaginiti s, unspecifiedCo ntact dermatitis and other eczema, unspecified causeNEED FOR PROPHYLACTIC VACCINATION AND INOCULATION, INFLUENZARout ine general medical examination at a health care facility 1 No Information [facility], [address], [place], [place], [id number], [place] tel:[phone] [facility] Need for other specified prophylactic measureScreen ing examination for pulmonary tuberculosis 0 Gary Catalan. [address] [place] [address], [place], [place], [id number], [place]. tel:[phone] [facility], [address], [place], [place], [id number], [place] tel:[phone] [facility] Unspecified contraceptive management [phone] No Information [facility], [address], [place], [place], [id number], [place] tel:[phone] [facility] Depressive disorder, not elsewhere classified [phone] 8 Z-Converted Provider. . [facility], [address], [place], [place], [id number], [place] tel:[phone] [facility] Dysmenorrhea [phone] Z-Converted Provider. . Family History Family Member Type Diagnosis Age At Onset No Information Immunizations Vaccine Date Status Comments TDAP administered Source: New Imm unization Record Influenza Vaccine administered Source: Ne w Immunization Record Varicella (Chicken Pox) administered Sour ce: New Immunization Record Diph Tetanus ascell Pertussis administere d Source: New Immunization Record Measles Mumps Rubella administered Source : New Immunization Record Polio (Injection) administered Source: Ne w Immunization Record Hepatitis B (a) CHILD administered Source : New Immunization Record Hepatitis B (a) CHILD administered Source : New Immunization Record Hepatitis B (a) CHILD administered Source : New Immunization Record Diph Tetanus ascell Pertussis administere d Source: New Immunization Record Polio (Injection) administered Source: Ne w Immunization Record Diph Tetanus ascell Pertussis administere d Source: New Immunization Record Hemophilus Influenza B administered Sourc e: New Immunization Record Polio (Injection) administered Source: Ne w Immunization Record Measles Mumps Rubella administered Source : New Immunization Record Diph Tetanus ascell Pertussis administere d Source: New Immunization Record Polio (Injection) administered Source: Ne w Immunization Record Hemophilus Influenza B administered Sourc e: New Immunization Record Diph Tetanus ascell Pertussis administere d Source: New Immunization Record Payers Payer name Insurance type Covered democrat ID Authoriza tion(s) No Information Social History Type Description Quantity Date Captured Comments Sex Female Smoking Status No Information Chief Complaint And Reason For Visit No Information Reason For Referral Reason For Referral No Information History Of Present Illness Encounter Date Complaint History Of Prese nt Illness No Information Functional Status Date Functional Assessmen t No Information Instructions Date Instruction Additional Infor mation No Information Assessments Type Assessment Date No Information Patient Care Teams Name Effective Dates (start - stop) Status Members No Information
[2025-08-04 02:39] VITALS: BP 129/84; PULSE 95; RESP 16; TEMP 36.8; O2SAT 96; BMI 28.1
--- OUTSIDE RECORDS SUMMARY | 2025-08-04 03:01 | XMS_ITS | Clinical Summary ---
Author Organization [employer] Address [address] [place] [address] 7 [place] [address] Care Team Providers Care Media Job Titles Name Role Phone Radha Hoyos MD Primary Care Provide r Allergies No known active allergies Medications * This document contains information received from the source organization and may not represent a complete record from that organization. metroNIDAZOLE (Metrogel) 0.75 % vaginal gelIndications:V aginal discharge INSERT 1 APPLICATORFUL INTRAVAGINALLY 2 (TWO) TIMES A WEEK. START THE DAY AFTER FINISHING METRONIDAZOLE TABLETS. 140 g 5 09/26/19 24 Active fluconazole (Diflucan) 150 MG tabletIndication s:Vaginal discharge Take one tablet today then after 72 hrs take another tablet 2 tablet 10/21/19 24 Active amitriptyline (Elavil) 10 MG tabletIndication s:Chronic migraine without aura without status migrainosus, not intractable TAKE 1 TABLET BY MOUTH EVERYDAY AT BEDTIME 30 tablet 08/06/20 24 Active polyethylene glycol, PEG, 3350 (MiraLax) 17 GM/SCOOP powderIndication s:Constipation, unspecified constipation type Take 1 scoop (17 gm) daily as needed for constipation. Hold for watery stool 527 g 10/06/19 25 Active docusate sodium (Colace) 50 MG capsuleIndicatio ns:Constipation, unspecified constipation type Take one capsule daily as needed for constipation 30 capsule 10/06/19 25 Active sertraline (Zoloft) 50 MG tabletIndication s:Anxiety Take 1 tablet (50 mg) by mouth in the morning. 30 tablet 1 01/15/20 25 Active hydrOXYzine pamoate (Vistaril) 25 MG capsuleIndicatio ns:Anxiety Take 1 capsule (25 mg) by mouth if needed in the morning and at bedtime for anxiety. 30 capsule 1 01/15/20 25 Active Active Problems Problem Noted Date Diagnosed Date History of panic attacks 07/24/2024 Family history of breast cancer in mother 2023 Encounter for preventive care 07/09/2024 Assessment & Plan (07/09/2024 4:22 PM EST): See HPI Neck pain 07/09/2024 Anxiety 07/09/2024 Vitamin D deficiency 03/17/2024 Acute urinary tract infection 03/17/2024 Vaginal discharge 10/21/2023 Assessment & Plan (11/03/2024 5:03 PM EDT): Bacterial vaginosis panel and CG was ordered again patient will be contacted with results In light of recurrent symptoms I will treat empirically for gonorrhea Extensive counseling about abstinence and treatment for her and partner was done today, I also advised to use condoms for at least 3 months Assessment & Plan (10/21/2023 10:44 AM EST): [...] trigger list FU w PCP in 2-3m Immunizations Immunization Administration Dates Next Due Influenza injectable quadrivalent [...] Sign Reading Time Taken Comments Blood Pressure 110/71 11/03/2024 2:22 PM EDT Pulse 70 11/03/2024 2:22 PM EDT Temperature 36.6 C (97.8 F) 11/03/2024 2:22 PM EDT Respiratory Rate 17 11/03/2024 2:22 PM EDT Oxygen Saturation 96% 11/03/2024 2:22 PM EDT Inhaled Oxygen Concentration - - Weight 75 kg (165 lb 6.4 oz) 11/03/2024 2:22 PM EDT Height 165.1 cm (5' 5 ) 07/09/2024 2:41 PM EST Body Mass Index 27.52 07/09/2024 2:41 PM EST Plan of Treatment Health Maintenance Due Date Last Done Comments Disability Screening 1990 Alcohol/Substance Use Screening 2002 Family Planning (PISQ) 2005 HPV Vaccines (1 - 3-dose series) 2005 Hepatitis B Vaccines (1 of 3 - 19+ 3-dose series) 2009 Pap Smear 2011 Cervical Cancer Screening 2020 HPV/Cotest 2020 Depression Screening 10/20/2024 10/21/2023, 10/21/19 24 COVID-19 Vaccine ( - season) 2025 09/18/2022 Influenza Vaccine (#1) 2025 07/01/2022, 2019 SDOH Screening 07/09/2025 07/09/2024 Tobacco Screening 01/14/2026 01/14/2025 DTaP/Tdap/Td Vaccines (3 - Td or Tdap) 05/25/2029 05/25/2019, 07/28/2012 Zoster Vaccines (1 of 2) 2040 RSV Patients and Patients Aged 60 years or older (1 - 1-dose 75+ series) 2065 Hepatitis C Screening Completed 07/31/2024 , 08/24/2022, 09/09/2020 HIV Screening Completed 10/06/2024, 07/19, 08/24/2022, Additional history exists HIB Vaccines Aged Out No longer eligi ble based on patient's age to complete this topic Hepatitis A Vaccines Aged Out No long er eligible based on patient's age to complete this topic IPV Vaccines Aged Out No longer eligi ble based on patient's age to complete this topic Meningococcal B Vaccine Aged Out No l onger eligible based on patient's age to complete this topic Meningococcal Vaccine Aged Out No ashley ina eligible based on patient's age to complete this topic Pneumococcal Vaccine: Pediatrics (0 to 5 Years) and At-Risk Patients (6 to 49) Years Aged Out No longer eligible based on patient's age to complete this topic RSV under 20 months Aged Out No longe r eligible based on patient's age to complete this topic Rotavirus Vaccines Aged Out No longer eligible based on patient's age to complete this topic Procedures Procedure Name Priority Date/Time Associated Diagnosis Comments HIV 1/2 ANTIGEN/ANTIBODY, FOURTH GENERATION W/RFL Routine 10/06/2024 2:57 PM EST Vaginal discharge HEPATITIS C AB W/REFL TO HCV RNA, QN, PCR Routine 07/31/2024 2:03 PM EST Encounter for preventive care from Last 3 Months or Most Recently Relevant to Health Maintenance Results * HIV-1/2 Antigen and Antibodies, Fourth Generation, with Reflexes (10/06/2024 2:57 PM EST) HIV AB/AG Nonreactive Nonreactive [facility] Comment:HIV-1 p24 Ag and/or HIV-1/HIV-2 Ab not detected.A test result that is nonreactive does not exclude thepossibility of exposure to or infection with HIV-1 and/orHIV-2. Nonreactive results in this assay for individualswith prior exposure to HIV-1 and/or HIV-2 may be due toantigen and antibody levels that are below the limit ofdetection of this assay.[employer] HIV Ag/Ab Combo assay result andsupplemental assay results should be interpreted inconjunction with the patient's clinical presentation,history and other laboratory results. If the results areinconsistent with clinical evidence, additional testing issuggested to confirm the result. Blood Venous blood specimen / Unknown 10/06/2024 2:57 PM EST 10/06/2024 4:04 PM EST us Radha Poe MD LAB BLOOD ORDERABLES Final Result [facility] [address] [place] [address] [phone] * Hepatitis C Antibody with Reflex to HCV, RNA, Quantitative, Real-Time PCR (07/31/2024 2:03 PM EST) Hepatitis C Antibody Nonreactive Nonreactive [facility] Comment:Antibodies to HCV no t detected; does not exclude early acuteHCV infection. Blood Venous blood specimen / Unknown 07/31/2024 2:03 PM EST 07/31/2024 3:56 PM EST us Radha Poe MD LAB BLOOD ORDERABLES Final Result [facility] [address] [place] [address] [phone] from Last 3 Months or Most Recently Relevant to Health Maintenance [place] [address] [place] [address] STANDARD Care Teams Media Job Titles Relationship Specialty Start Date End Date Radha Hoyos MD [address] [place] [id number] PCP - General Family Medicine 08/26/18
--- OUTSIDE RECORDS SUMMARY | 2025-08-04 03:01 | XMS_ITS | Encounter Summary ---
Author Organization [employer] Address [address] [facility] 7t [place] [address] Care Team Providers Care Naprapath Name Role Phone Radha Hoyos MD Primary Care Provide r Reason for Visit * Reason Comments Med Change Request Encounter Details Date Type Department Care Team (Late st Contact Info) Description 05/13/2023 Refill [facility] [address] [place], [place] [phone] Yuki Pyle MD [address] [place], [place] [phone] Chronic migraine without aura without status migrainosus, [...] intractable documented in this encounter Care Teams Naprapath Relationship Specialty Start Date End Date Radha Hoyos MD [address] [place], [place] [phone] PCP - General Family Medicine 08/26/18 documented as of this encounter
--- OUTSIDE RECORDS SUMMARY | 2025-08-04 03:01 | XMS_ITS | Encounter Summary ---
Author Organization [employer] Address [address] [facility] [address]t [place] [address] Care Team Providers Care Information Technology Teacher Name Role Phone Radha Hoyos MD Primary Care Provide r Reason for Visit * Reason Comments Med Change Request Encounter Details Date Type Department Care Team (Late st Contact Info) Description 05/13/2023 Refill [facility] [address] [place], [place] [phone] Yuki Pyle MD [address] [place], [place] [phone] Chronic migraine without aura without status migrainosus, [...] intractable documented in this encounter Care Teams Information Technology Teacher Relationship Specialty Start Date End Date Radha Hoyos MD [address] [place], [place] [phone] PCP - General Family Medicine 08/26/18 documented as of this encounter
[2025-08-04 03:22] LABS: IDNOW Serial# 6674DD1D; Strep A Nucleic Acid Negative (Negative)
[2025-08-04 03:52] LABS: Resp Syncy Virus RNA Qual PCR NEGATIVE (Negative); SARS COV2 PCR INHOUSE NEGATIVE (Negative)
[2025-08-04 04:00] VITALS: BP 110/69; PULSE 89; TEMP 37.1; O2SAT 98; O2SAT 99
[2025-08-04 05:43] VITALS: BP 97/60; PULSE 94; TEMP 38.5; O2SAT 95
--- NOTE | 2025-08-04 06:15 | ED.URI ---
HPI - URI/Sore Throat General Chief Complaint: Upper Respiratory Symptoms Stated Complaint: sore throat Time Seen by Provider: 08/04/25 05:59 Source: patient Mode of arrival: ambulatory Limitations: no limitations History of Present Illness ED Provider: Mayur Boyle PA-C HPI Narrative: 34 yo female with no medical problems presents to the ER for evaluation of 2 days of sore throat, body aches, cough, nasal congestion and generally feeling unwell. Her young son with sick with similar symptoms this week. She reports sore throat is the worst part, pain with swallowing, but she is able to eat and drink normally. She reports chest burning when she coughs. She c/o bilateral ear pressure and a frontal headache. No SOB, difficulty breathing, N/V/D, abdominal pain, rashes. She did not get her flu shot this year. MD elicited complaint: cough, sore throat and nasal congestion Onset (ago): day(s) (2) Consistency: progressively worsening Severity: severe Description of mucous: clear and watery Able to tolerate fluids by mouth: Yes Exacerbating factors: swallowing Relieving factors: NSAID Context: sick contacts Associated symptoms: chills, myalgias, headache, rhinorrhea, nasal congestion, sore throat and cough Treatments prior to arrival: none Related Data Previous Rx's ?Medication ?Instructions ?Recorded ondansetron 4 mg disintegrating 4 mg PO Q8H PRN nausea and 04/13/22 tablet vomiting #5 tabs oseltamivir 75 mg capsule (Tamiflu) 75 mg PO Q12H 5 days #10 caps 08/04/25 Allergies Allergy/AdvReac Type Severity Reaction Status Date / Time No Known Allergies (NKA) Allergy Mild NOT Verified 08/04/25 02:41 APPLICABLE Review of Systems Review of Systems: Yes all other systems are reviewed and are negative [facility] Social History Social History Advance Directives: No Advance Directives Information Provided: Yes Do you have a plan to hurt others: No Plan Patient : No Physical Exam Exam: Exam: Appearance: Alert. Oriented X3. No acute distress. Head: normocephalic, atraumatic. Eyes: Pupils equal, round and reactive to light. ENT: Pharynx normal. No tonsillar swelling or exudate. Clear nasal discharge. Normal bilateral TMs. Neck: Normal inspection. Neck supple. CVS: Normal heart rate and rhythm. Pulses normal. Respiratory: No respiratory distress. Breath sounds normal. Congested cough. Abdomen: Soft and nontender. +BS x4 Skin: Skin warm and dry. Normal skin color. Normal skin turgor. No rashes. Extremities: No lower extremity edema. No joint swelling. Neuro/psych: Oriented X 3.Grossly normal, nonfocal. Normal speech and cognition. Vital Signs: Vital Signs: Last Vital Signs Temp 98.9 F 08/04/25 06:26 Pulse 69 08/04/25 06:26 Resp 20 08/04/25 06:26 BP 99/70 08/04/25 06:26 Pulse Ox 96 08/04/25 06:26 O2 Del Method Room Air 08/04/25 06:26 BMI result Body Mass Index 28.1 Medications Administered Discontinued Medications Generic Name Dose Route Start Last Admin Trade Name Freq PRN Reason Stop Dose Admin Acetaminophen 975 mg 08/04/25 04:30 08/04/25 04:36 Acetaminophen 325 Mg Tablet PO 08/04/25 04:31 975 mg ONCE ONE Administration Ibuprofen 600 mg 08/04/25 06:01 08/04/25 06:13 Ibuprofen 600 Mg Tablet PO 08/04/25 06:02 600 mg ONCE ONE Administration Medical Decision Making Medical Decision Making [facility] Narrative: 34 yo female presenting with URI symptoms after being exposed to her sick son. She is febrile 101.3, otherwise vitally stable. Tested positive for influenza A. Not vaccinated. Exam is reassuring, no evidence of QUALITY CONTROL SPECIALIST, voice is clear. Lungs are clear. Motrin given. We discussed the pros/cons of Tamiflu and patient would like Tamiflu. Other supportive care measures and return precautions were discussed. comfortable with discharge home. Differential Diagnosis Differential Diagnoses: The differential diagnosis associated with the presentation includes strep, covid, flu, rsv, other viral syndrome, bronchitis, pneumonia, no evidence of peritonsillar abcsess or retropharyngeal abscess Lab Data [facility] Lab Attestation statement: I reviewed the patient's lab results. Labs: Lab Results 08/04/25 08/04/25 Range/Units 03:08 03:09 Influenza Type A (PCR) POSITIVE A (Negative) Influenza Type B (PCR) NEGATIVE (Negative) RSV RNA Qual (PCR) NEGATIVE (Negative) SARS-CoV-2 RNA (RT-PCR) NEGATIVE (Negative) S. pyogenes GrpA DENICE Negative (Negative) External Record Review External record reviewed: Prior outpatient labs Tests considered The following testing was considered but not selected: cxr considered, low suspicion for PNA Prescription Management I considered prescription management with: Pain Medication and Antiviral Critical Care Time Critical Care Time Critical Care Time: No Discharge Plan Discharge Clinical Impression: Influenza Patient Disposition: Home, Self-Care Instructions: Influenza (DC) Additional Instructions: you tested positive for influenza A Take the prescribed Tamiflu to help potentially shortened the duration of your symptoms. Take [id number] cold and flu medications as needed for your other symptoms. Rest and stay hydrated. Alternate ibuprofen and acetaminophen as needed for pain and fevers. If you develop new or worsening symptoms call 911 or come back to the ER for further evaluation. Prescriptions: New oseltamivir [Tamiflu] 75 mg capsule 75 mg PO Q12H 5 Days Qty: 10 0RF No Action ondansetron 4 mg tablet,disintegrating 4 mg PO Q8H PRN (Reason: nausea and vomiting) Qty: 5 0RF Stand Alone Forms: Work/School Release Interventions: ED Discharge Assessment Last Done: 08/04/25 06:26 Discharge Date/Time: 08/04/25 06:29 Print Language: Martiniquais
[2025-08-04 06:26] VITALS: BP 99/70; PULSE 69; RESP 20; TEMP 37.2; O2SAT 96
== END 2025-08-04 06:29 | disposition home or self-care (01) ==
PROVIDERS: Emergency Provider Emergency Medicine Emergency Medical Services
DX: J10.1 Influenza due to other identified influenza virus with other respiratory manifestations (principal); M79.10 Myalgia, unspecified site; R09.89 Other specified symptoms and signs involving the circulatory and respiratory systems; R51.9 Headache, unspecified; J34.89 Other specified disorders of nose and nasal sinuses; Z03.818 Encounter for observation for suspected exposure to other biological agents ruled out
CPT/HCPCS: 87637; 87651; 99283; 99284